=== PATIENT | male | born 1940 | race Caucasian/White ===

== ENCOUNTER 2016-12-17 18:28 | Observation (INO) | payer OTHER ==
[~2016-12-17] VITALS: Ht 188 cm; Wt 84.8 kg
[2016-12-17] MEDS ORDERED: SODIUM CHLORIDE 0.9% 1,000 ML IVB ONE (19:00)
[2016-12-17 19:13] LABS: Basophils # (auto) 0 uL; Basophils % (auto) 0.1 % (0.0-2.0); Eosinophils # (auto) 0.1 uL; Eosinophils % (auto) 0.7 % (0.0-7.0); Hematocrit 35.6 % (41.0-53.0); Hemoglobin 12.2 g/dL (13.5-17.5); Lymphocytes # (auto) 0.6 uL; Lymphocytes % (auto) 4.9 % (10.0-50.0); Mean Corpuscular Hemoglobin 31.7 pg (28.0-32.0); Mean Corpuscular Hgb Conc. 34.3 g/dL (32.0-36.0); Mean Corpuscular Volume 92.4 fL (80.0-100.0); Mean Platelet Volume 7.7 fL (7.4-10.4); Neutrophils # (auto) 10.4 uL; Neutrophils % (auto) 86.3 % (37.0-80.0); Platelet Count (auto) 279 10^3/uL (140-450); Red Cell Distribution Width 13.2 % (11.6-16.0); White Blood Cell 12.1 10^3/uL (4.4-10.8)
[2016-12-17 19:28] LABS: Albumin 2.4 g/dL (3.4-5.0); BUN/Creatinine Ratio 18.8; Calcium 8.5 mg/dL (8.5-10.1); Magnesium 2.3 mg/dL (1.6-2.6); Potassium 3.7 mmol/L (3.5-5.1)
[2016-12-17 19:29] LABS: INR 0.98 (0.9-1.15); Partial Thromboplastin Time 33.6 sec (22.64-33.71); Prothrombin Time 10.7 sec (9.37-12.3)
[2016-12-17 19:33] LABS: Bilirubin, Total 0.5 mg/dL (0.2-1.0); Total Protein 6.4 g/dL (6.4-8.2)
[2016-12-17 19:45] LABS: B-Type Natriuretic Peptide 177.14 pg/mL (0-100); Temperature: 23.5 C (20.0-25.0)
[2016-12-17] MEDS ORDERED: ASPirin-EC 81 mg tab PO ONE (20:30)
[2016-12-17 20:40] LABS: Urine RBC None Seen /hpf (0 - 3)
[2016-12-17 20:54] LABS: Urine Bilirubin Negative (Negative); Urine Blood Negative /uL (Negative); Urine Color Yellow (Yellow); Urine Glucose Normal (Normal); Urine Ketone Negative (Negative); Urine Nitrite Negative (Negative); Urine Urobilinogen Normal (Negative)
[2016-12-18] MEDS ORDERED: TRAM50TA2 PO (00:13)
[2016-12-18] MEDS ORDERED: GABA300C8 PO (00:13)
[2016-12-18] MEDS ORDERED: BACL20TA PO (00:13)
[2016-12-18] MEDS ORDERED: NOR5T PO (00:13)
[2016-12-18] MEDS ORDERED: hydrALAZINE HCL 20 MG/ML VL IV PRN (01:15)
[2016-12-18] MEDS ORDERED: SODIUM CHLORIDE 0.9% 1,000 ML IV ONE (01:15)
[2016-12-18 02:18] LABS: BUN/Creatinine Ratio 18.4; Calcium 8.6 mg/dL (8.5-10.1); Potassium 3.5 mmol/L (3.5-5.1)
[2016-12-18 06:01] VITALS: BP 150/75
== END 2016-12-18 07:21 | disposition home or self-care (01) | DRG 69 ==
LOC: EDAGE 18:28 → EDBD 18:28 → EDUNIT# 18:28 → ER 18:35 → OVERFLOW 19:02 → ER 12-18 07:16
PROVIDERS: ADMIT Family Medicine; ATTEND Family Medicine
DX: G45.9 Transient cerebral ischemic attack, unspecified (principal); J98.11 Atelectasis; R74.8 Abnormal levels of other serum enzymes; D64.9 Anemia, unspecified; N18.3 Chronic kidney disease, stage 3 (moderate); E11.22 Type 2 diabetes mellitus with diabetic chronic kidney disease; I12.9 Hypertensive chronic kidney disease with stage 1 through stage 4 chronic kidney disease, or unspecified chronic kidney disease; Z82.49 Family history of ischemic heart disease and other diseases of the circulatory system; I25.10 Atherosclerotic heart disease of native coronary artery without angina pectoris; Z95.5 Presence of coronary angioplasty implant and graft; Z96.652 Presence of left artificial knee joint; R51 Headache
CPT/HCPCS: 36415; 70450; 71010; 80048; 80053; 81001; 82962; 83605; 83735; 83880; 84484; 85025; 85610; 85730; 87040; 93005; 93971; 96360; 96361; 99285; G0378; J7030